=== PATIENT | male | born 1955 | race Caucasian/White ===

== ENCOUNTER 2017-07-26 05:22 | Outpatient (CLI) | payer BC, OTHER ==
--- NOTE | ~2017-07-26 | P ---
[facility] [place] [address] PROCEDURE REPORT Name: LANDRY CURIEL Room #: DEP Lidia Stone#: [id number] Admission: 07/26/17 Attend Phys: Marko Mejia MD Discharge: 07/26/17 Date of : 59 Report #: [id number] THIS REPORT FOR: //name// CC: Paulino Aparicioshannen Nathanon DATE OF SERVICE: 07/26/2017 PREOPERATIVE DIAGNOSIS: Supraventricular tachycardia. POSTOPERATIVE DIAGNOSIS: Typical atrioventricular zina reentrant tachycardia. PROCEDURES PERFORMED: 1. EP study with SVT ablation. 2. 3-D mapping. 3. Testing after drug infusion. HISTORY: The patient is a 62-year-old male with a history of mechanical aortic valve replacement. The patient reports that since his aortic valve replacement several years ago, the patient has had recurrent supraventricular tachycardia. He has failed antiarrhythmic drugs. In the clinic, he could induce his SVT by taking a deep breath and he could easily terminate it with a carotid massage. He is here for EP study and ablation. ANESTHESIA: The patient underwent MAC anesthesia, with no anesthesia-related complications. DESCRIPTION OF PROCEDURE: The patient underwent informed consent. We discussed the details of the procedure, including the risks, which include but not limited to bleeding, infection, vascular damage, stroke, SD as well as damage to the robinson conduction system, requiring a permanent pacemaker. The patient was brought to the EP laboratory in a fasting and sedated state. In fact, prior to the procedure, he was going in and out of what appears to be AV zina reentrant tachycardia. Next, I injected lidocaine to both groin areas and obtained access to the bilateral femoral veins and placed sheaths using the modified Seldinger technique. I placed an 8-Cypriot and 6-Cypriot short sheath in the right femoral vein and a 7-Cypriot and 6-Cypriot short sheath in the left femoral vein. Under fluoroscopy, I placed 3 quadripolar catheters at the HRA, His, and RV positions and a decapolar catheter easily in the coronary sinus. Next, an EP study was performed. At baseline, the patient was in supraventricular tachycardia with a tachycardia cycle length of 420 [facility] [address] [place] [address] PROCEDURE REPORT Name: MOISÉSLANDRY Room #: DEP [facility]#: [id number] Admission: 07/26/17 Attend Phys: Marko Mejia MD Discharge: 07/26/17 Date of : 59 Report #: [id number] milliseconds, a septal VA time of 30 milliseconds and entrainment demonstrated a VA-HV response consistent with typical AV zina reentrant tachycardia patient. Next, I attempted to obtain AV block and AV zina ERP, but any atrial pacing would result in a long AH interval, followed by induction of SVT. Therefore, AV block could not be determined. The VA block though was noted to be less than 290 milliseconds. When the patient was in SVT, his HV interval was noted to be 60 milliseconds. 3D MAPPING AND ABLATION: Next, I exchanged my HRA catheter and sheath for a SR0 and 4 mm Biosense Ivey ablation catheter. Next, I created a detailed 3D geometry of the right atrium with specific emphasis of the His bundle in slow pathway region as well as the coronary sinus ostium. In order to find a slow pathway potential, we would have to burst pace the ventricle to terminate the SVT, which was essentially incessant. I performed 3 ablation lesions and there were nice junctionals noted on the second lesion. There was never any compromised conduction. Next, I performed a basic EP study and I demonstrated that AV block was 490 milliseconds. I continued to pace and after a few minutes, I reinduced SVT with a tachycardia cycle length of 520 milliseconds. This was induced with atrial extrastimuli at 420 milliseconds at a 550-millisecond basic drive cycle length. At this point, we could tell that we have already done something to the slow pathway as it was now more difficult to induce. Therefore, I performed 2 additional ablation lesions at the level of the slow pathway at 50 patel 55 degrees and 60 seconds. Again, there was nice slow junctionals on these 2 ablation lesions. Next, an EP study was again performed. AV block was noted at 510 milliseconds and AV zina ERP was noted at 430 milliseconds at a 500-millisecond basic drive cycle length. Next, isoproterenol infusion was initiated at 1 mcg per minute and AV block was noted at 480 milliseconds. There were single AV zina echoes with atrial extrastimuli. AV zina ERP was noted at 400 milliseconds at a 550-millisecond basic drive cycle length. There was no inducible SVT. VA block was noted at 310 milliseconds and VA ERP was noted at 220 milliseconds at a 500-millisecond basic drive cycle length. Next, the isoproterenol infusion was increased to 2 mcg per minute and AV block was noted at 470 milliseconds. AV zina ERP was noted at 390 milliseconds with a 550-millisecond basic drive cycle length. Again, there were rare single AV zina echoes, but no double echoes and no SVT. Isoproterenol infusion was discontinued and post-ablation, the patient was in sinus rhythm with a sinus cycle length of 695 milliseconds, NV interval 210 milliseconds, QRS duration 100 milliseconds, QT interval 355 milliseconds, AH interval 115 milliseconds and HV [facility] [address] [place] [address] PROCEDURE REPORT Name: LANDRY CURIEL Room #: DEP [facility]#: [id number] Admission: 07/26/17 Attend Phys: Marko Mejia MD Discharge: 07/26/17 Date of : 59 Report #: [id number] interval 60 milliseconds. As such, the patient was rendered non-inducible and the procedure was concluded. Catheters and sheaths were pulled. Hemostasis was obtained and the patient awoke neurologically and hemodynamically intact, with no complications and no significant bleeding. CONCLUSIONS: 1. Successful ablation of typical atrioventricular zina reentrant tachycardia. 2. Normal SA zina function. 3. Normal AV zina function. 4. Normal His-Purkinje function. 5. No other inducible arrhythmias on or off isoproterenol. RECOMMENDATIONS: The patient will be monitored in recovery and can go home today. He will go home with Lovenox shots until his INR is therapeutic given his mechanical aortic valve. He will see me back in 3 months. <ELECTRONICALLY SIGNED> By: Marko Mejia MD 08/04/17 1410 1158 1400 Marko Mejia MD /nt
[2017-07-26] MEDS ORDERED: FARXIGA10 MG PO (07:17)
[2017-07-26] MEDS ORDERED: VASCEPA1 GM PO (07:17)
[2017-07-26] MEDS ORDERED: COUMADIN 5 MG TA5 M1 PO (07:17)
[2017-07-26] MEDS ORDERED: CARVEDILOL12.5 MG PO (07:17)
[2017-07-26] MEDS ORDERED: PIOGLITAZONE-M1 EAC1 PO (07:18)
[2017-07-26] MEDS ORDERED: ZETIA10 MG PO (07:18)
[2017-07-26] MEDS ORDERED: CRESTOR20 MG PO (07:18)
[2017-07-26] MEDS ORDERED: TRIGLIDE160 M1 PO (07:20)
[2017-07-26] MEDS ORDERED: ASPIR 8181 MG PO (07:20)
[2017-07-26] MEDS ORDERED: PRILOSEC 20 MG20 MG PO (07:21)
[2017-07-26 07:40] LABS: BASOPHILS 0.4 % (0.0-2.0); EOSINOPHILS 1.5 % (0.0-3.0); HEMATOCRIT 42.6 % (42.0-52.0); HEMOGLOBIN 14.4 gm/dL (14.0-18.0); LYMPHOCYTES 16.6 % (24.0-44.0); MCH 27.9 pg (26.0-34.0); MCHC 33.9 g/dL (28.0-37.0); MCV 82.3 fL (80.0-100.0); MONOCYTES 11.5 % (1.0-8.0); PLATELET COUNT 140 thou/uL (150-400); RBC 5.17 mil/uL (4.50-6.00); RDW 15.3 % (10.5-14.5); WBC 7.1 thou/uL (4.0-11.0)
[2017-07-26 07:46] LABS: POTASSIUM 3.8 mmol/L (3.5-5.1)
[2017-07-26 07:56] LABS: MANUAL DIFF NO
[2017-07-26 07:59] LABS: APTT 30.3 Seconds (24.5-32.8); INR 1.3; PROTIME 13.7 Seconds (9.3-11.4)
[2017-07-26] MEDS ORDERED: ENOXAPARIN120 MG/0.1 SUBQ (13:14)
== END 2017-07-26 11:45 | disposition home or self-care (01) ==
LOC: TBA 05:22 → CATH 05:22 → EDSTATUS 07-27 06:28 → OR 07-27 10:28 → CATH 07-27 15:06
PROVIDERS: Internal Medicine Cardiovascular Disease
DX: I47.1 Supraventricular tachycardia (principal)
CPT/HCPCS: 62110; 62900; 70005

== ENCOUNTER → 2020-10-05 | Outpatient (CLI) | payer BC, OTHER ==
[~2020-10-05] MED LIST: ASPIR 8181 MG PO; CARVEDILOL12.5 MG PO; COUMADIN 5 MG TA5 M1 PO; CRESTOR20 MG PO; ENOXAPARIN120 MG/0.1 SUBQ; FARXIGA10 MG PO; PIOGLITAZONE-M1 EAC1 PO; PRILOSEC 20 MG20 MG PO; TRIGLIDE160 M1 PO; VASCEPA1 GM PO; ZETIA10 MG PO
== END ==
LOC: SJCVCIMAG 09:48
PROVIDERS: ATTEND Internal Medicine Cardiovascular Disease
DX: I07.1 Rheumatic tricuspid insufficiency (principal); I44.0 Atrioventricular block, first degree; I49.3 Ventricular premature depolarization; E78.5 Hyperlipidemia, unspecified; I10 Essential (primary) hypertension; E11.9 Type 2 diabetes mellitus without complications; Z95.2 Presence of prosthetic heart valve; Z98.890 Other specified postprocedural states; Z79.899 Other long term (current) drug therapy

== ENCOUNTER → 2020-11-26 | Outpatient (CLI) | payer BC, OTHER ==
[~2020-11-26] MED LIST changes: +ALOGLIPTIN25 MG PO; +EDARBI40 MG PO; +EZETIMIBE10 MG PO; +FENOFIBRATE160 MG PO; +JARDIANCE10 MG PO; +METFORMIN HCL1000 MG PO; +MULTIVITAMINS1 EAC6 PO; +PIOGLITAZONE15 MG; +PROTONIX40 M2 PO; +TRULICITY0.75 MG/0. SUBQ; +VITAMIN D3100 MCG PO; +WARFARIN SODIUM10 MG PO; +WARFARIN SODIUM5 MG PO; +ZINC50 M2 PO
== END ==
LOC: LAB 08:33
PROVIDERS: ATTEND Orthopaedic Surgery Sports Medicine
DX: Z01.812 Encounter for preprocedural laboratory examination (principal); Z20.828 Contact with and (suspected) exposure to other viral communicable diseases

== ENCOUNTER 2020-12-02 06:02 | Inpatient (IN) | payer BC, OTHER ==
[2020-11-26 09:05] LABS: URINE BILIRUBIN NEGATIVE (Negative); URINE BLOOD NEGATIVE (Negative); URINE CLARITY CLEAR; URINE COLOR YELLOW; URINE GLUCOSE-RANDOM* 3+ (Negative); URINE KETONES NEGATIVE (Negative); URINE LEUKOCYTES-REFLEX NEGATIVE (Negative); URINE NITRITE-REFLEX NEGATIVE (Negative); URINE PROTEIN (DIPSTICK) NEGATIVE (Negative); URINE UROBILINOGEN 0.2 E.U./dl (0.2-1.0)
[2020-11-26 09:23] LABS: INR 2.3; PROTIME 24.1 Seconds (9.3-11.4)
[2020-11-26 09:24] LABS: HEMATOCRIT 45.1 % (42.0-52.0); HEMOGLOBIN 14.5 gm/dL (14.0-18.0); MCH 27.5 pg (26.0-34.0); MCHC 32.3 g/dL (28.0-37.0); MCV 85.2 fL (80.0-100.0); RBC 5.29 mil/uL (4.50-6.00); RDW 14.9 % (10.5-14.5)
[2020-11-26 09:37] LABS: ALBUMIN 4.6 g/dL (3.4-5.0); CALCIUM 10.6 mg/dL (8.5-10.1); CREATININE 1.2 mg/dL (0.7-1.3); POTASSIUM 4.4 mmol/L (3.5-5.1)
[2020-11-27 01:06] LABS: GLYCOHEMOGLOBIN (HGB A1C) 6.6 % (4.8-5.6)
[~2020-12-02] VITALS: Ht 177.8 cm; Wt 108.4 kg
[2020-12-02 06:56] VITALS: BP 144/69
[2020-12-02 07:24] LABS: PROTIME 11.3 Seconds (9.3-11.4)
[2020-12-02 07:55] LABS: INR 1.1
[2020-12-02 13:10] VITALS: BP 130/63
[2020-12-02 16:52] VITALS: BP 128/63
[2020-12-02 20:01] VITALS: BP 107/56
--- NOTE | 2020-12-02 21:22 | NUR ---
PATIENT ADMITTED FROM OR WITH RIGHT TOTAL KNEE, FILEMON DRESSING, KNEE HIGH DALE HOSE IN PLACE, SCD'S, AND [facility] CARE. PATIENT C/O PAIN WITH RIGHT KNEE, OXYCODONE 1 TABLET GIVEN. RIGHT FOREARM IV IN PLACE, IV FLUIDS STARTED AT 100CC/HR. AT BEDSIDE. PHYSICAL THERAPY WORKED WITH THE PATIENT THIS AFTERNOON. PATIENT WILL DISCHARGE TOMORROW IF OK BY PT. WILL CONTINUE TO MONITOR.
--- NOTE | 2020-12-03 04:11 | NUR ---
PT IS A/O X4 AND IS UP WITH SBA TO THE BR. USES A URINAL AT THE BEDSIDE. C/O PAIN. PRN PAIN MEDICATION PROVIDED DIRECTED. FALL PRECAUTIONS IMPLEMENTED, CALL LIGHT IS WITHIN REACH. WILL CONTINUE TO MONITOR.
[2020-12-03 05:52] LABS: ABSOLUTE NEUTROPHILS 5.1 thou/uL (1.4-8.2); BASOPHILS 0.2 % (0.0-2.0); EOSINOPHILS 0.1 % (0.0-3.0); HEMATOCRIT 38.3 % (42.0-52.0); HEMOGLOBIN 12.5 gm/dL (14.0-18.0); LYMPHOCYTES 23.2 % (24.0-44.0); MCH 27.9 pg (26.0-34.0); MCHC 32.5 g/dL (28.0-37.0); MCV 85.9 fL (80.0-100.0); MONOCYTES 11.7 % (1.0-8.0); PLATELET COUNT 157 thou/uL (150-400); POLYS 64.8 % (36.0-66.0); RBC 4.46 mil/uL (4.50-6.00); RDW 14.7 % (10.5-14.5); WBC 7.9 thou/uL (4.0-11.0)
[2020-12-03 05:59] LABS: INR 1.1; PROTIME 11.2 Seconds (9.3-11.4)
[2020-12-03 06:08] LABS: CREATININE 1.1 mg/dL (0.7-1.3); MAGNESIUM 2.3 mg/dL (1.8-2.4); POTASSIUM 4.2 mmol/L (3.5-5.1)
[2020-12-03 08:53] VITALS: BP 122/48
--- NOTE | 2020-12-03 10:06 | NUR ---
ASSUMED CARE AT 0700. PT IS A&O X4. PT DRESSING ON RIGHT KNEE IS INTACT, DRY,AND CLEAN. PT HAS FILEMON, THIGH HIGH DALE HOSE, AND POLAR CARE ALONG WITH SCD HOSE IN PLACE. IV IS INTACT AND SHOWS NO SIGNS OF REDNESS OR SWELLING. PT COMPLAINS OF SLIGHT PAIN 3/10 BUT DOES NOT WANT ANYTHING OTHER THAN THE SCHEDULE MORPHINE AT THIS TIME. WT BEARING TOLERATED. PT DENIES SOA,V,D. FALL PRECAUTION. CALL LIGHT WITHIN REACH. WILL CONTINUE TO MONITOR. BP WAS SLIGHTLY LOW ON DIALOTIC SO PT DECIDED TO HOLD ON THE BLOOD PRESSURE MEDICATION. PT DENIES NUMBNESS OR TINGLING. PT STILL COMPLAINS OF SLIGHT RIGHT FOOT DROP. BSG WNL
--- NOTE | 2020-12-03 10:23 | NUR ---
ASSESSMENT: CM REVIEWED CHART AND SPOKE WITH PT. PT IS ALERT AND ORIENTED X4. PT IS S/P R TKR. PT REPORTS LIVING IN A HOUSE WITH HIS . PT REPORTS ABOUT 2 STEPS TO ENTER AND ABOUT 12-14 STEPS WITH HANDRAILS TO HIS BEDROOM. PT REPORTS HAVING A WALKER AT HOME. CM DISCUSSED ROLE. PT HAS OUTPATIENT THERAPY ARRANGED AT [facility] STARTING ON MONDAY. PT REPORTS HE WILL HAVE NO NEEDS FROM . PT WILL LIKELY DISCHARGE LATER TODAY.
[2020-12-03] MEDS ORDERED: LOVENOX80 MG/0.8 SUBQ (10:40)
[2020-12-03 11:30] VITALS: BP 122/48
--- NOTE | 2020-12-05 12:11 | O ---
[address] [address] OPERATIVE REPORT Name: LANDRY CURIEL Room #: 442-P [facility] IN M.R.#: [id number] Admission: 12/02/20 Attend Phys: Tono Horton MD Discharge: 12/03/20 Date of : 59 Report #: [id number] THIS REPORT FOR: cc: Favian Rodas MD, Neal A. MD McCabe,Tono Jimenez MD ~ DATE OF SERVICE: 12/02/2020 SERVICE: Orthopedics. FACILITY: [facility]. SURGEON: Tono Horton MD SENIOR ASSISTANT MANAGER: Tiera Robert NP. INDICATION FOR SENIOR ASSISTANT MANAGER: Exposure and closure, assistance with retraction and implant placement. PREOPERATIVE DIAGNOSES: 1. Right knee pain. 2. Severe right knee osteoarthritis, varus type. POSTOPERATIVE DIAGNOSES: 1. Right knee pain. 2. Severe right knee osteoarthritis, varus type. PROCEDURES: 1. Right total knee arthroplasty. 2. Computer navigated robotic-assisted arthroplasty. COMPLICATIONS: None. DRAINS: None. SPECIMENS: None. ANESTHESIA: General with regional. ESTIMATED BLOOD LOSS: 25 mL. FINDINGS: Synthes Oxinium size 5 Journey femoral component with size 6 tibial component, 10 mm constrained poly insert and 35 mm patellar button. HISTORY: The patient is a 65-year-old gentleman with history of advanced right [address] [address] OPERATIVE REPORT Name: LANDRY CURIEL Room #: 442-P [facility]#: [id number] Admission: 12/02/20 Attend Phys: Tono Horton MD Discharge: 12/03/20 Date of : 59 Report #: [id number] knee osteoarthritis with [id number] changes as well as sclerosis, osteophytes and subchondral cyst. He had failed extensive conservative measures including rest, activity modifications, physical therapy, oral medicines, bracing, injections and modalities. He had x-rays, which were consistent with severe osteoarthritis and was indicated for surgical treatment after failing conservative measures. Risks, benefits, alternatives, and indication of surgery discussed with him in detail. Risks include but not limited to pain, bleeding, infection, injury to nerves or blood vessels, persistent pain despite surgical intervention, failure of any repairs, progression of preexisting chondral injury, stiffness, need for further surgery as well as complications related to anesthesia such as stroke, heart attack, pulmonary complications, thromboembolic disease and . He saw his hand laminator in preparation for surgery and was medically optimized. PROCEDURE IN DETAIL: After right lower extremity was correctly identified in the preoperative holding area as the operative extremity, the patient underwent regional nerve block. He was then taken to the operating room where general anesthesia was induced without complication. He was padded appropriately. Prophylactic antibiotics were administered at appropriate time. Tourniquet was applied to right lower extremity. TXA was administered before the tourniquet went up and before incision as well as a second dose after the tourniquet came down. Right leg was prepped and draped in standard sterile fashion. Timeout procedure performed. Esmarch was used. Tourniquet inflated to 300 mmHg. Standard anterior approach was made with medial parapatellar arthrotomy. The knee was exposed. The retropatellar tendon fat pad was excised as were the anterior horns of the menisci and the cruciate ligaments. He had severe osteoarthritis, tricompartmental. Osteophytes were removed. The [employer] Navio check points and femoral and tibial half pins were then placed and then the Navio system was used to map out the patient's alignment sizing and balancing. He had some osteophytes medially and it appeared that he was tight medially as well, so we made plans for a medial release at the appropriate time, which was consistent with his varus alignment with approximately 5-6 degree flexion contracture. We sized him to a 5 femur and then proceeded with using the Navio bur to make the distal femoral cut based on the templating. The tibia cut was then made as well and we used the sizing block to assess the medial and lateral flexion and extension gaps. He was tight medially in both flexion and extension. I used a lamina office admin and an 11 blade to perform a pie-crusting technique to release the medial side. The knee was well balanced with the 10 mm sizing block at this point. The posterior capsular component of the periarticular injection cocktail was then injected in the posterior capsule and then we proceeded with final preparation of the femoral component and the tibial component as well. The trials were placed with a 10 mm insert. I prepared the patella as well and then was assessed the balancing with the trials in place. At this point, he is having some gapping medially. It appeared that during the [facility] [address] [place] [address] OPERATIVE REPORT Name: LANDRY CURIEL Room #: 442-P [facility] IN M.R.#: [id number] Admission: 12/02/20 Attend Phys: Tono Horton MD Discharge: 12/03/20 Date of : 59 Report #: [id number] exposure, there have been some bulging of the medial soft tissues, so we made plans for constrained liner to provide that initial coronal plane stability. The Navio system was used in making these assessments and then we made final preparations and then removed the implants, thoroughly lavaged the knee and then made small drill holes in the medial tibial plateau due to the sclerotic bone that was present. After irrigating and injecting the periosteum with the periarticular injection cocktail, the final implants were cemented into place on the femur and the tibia and we placed the knee into extension with the 11 mm constrained liner to provide some increased compression. The patella was cemented into place as well. While the cement was allowed to cure, the remaining portion of the injection cocktail was injected into the knee and then the excess cement was removed as well. The tourniquet was let down. Hemostasis was achieved. We checked the Navio system once more for some additional feedback on the balancing and I favored the 10 mm insert based on the preoperative templating and the postoperative templating and balancing on manual feel. The constrained liner was selected in order to provide the additional medial support while soft tissues healed. The final poly was then snapped into position after the knee was once again thoroughly lavaged and we assessed for any residual cement pieces that were present. Note that the posterior osteophytes were resected prior to placement of the final implant. The arthrotomy was then closed over a gram of vancomycin powder with 0 Vicryl suture in [id number] fashion. We performed a gravity flexion test confirmed that a watertight closure had been achieved. Skin was closed with 2-0 Vicryl followed by running subcuticular 3-0 Monocryl and Dermabond and then Acticoat and a FILEMON dressing was applied to the right leg followed by compression stocking and a cold therapy device. The patient was awakened from anesthesia and taken to recovery room in stable condition. No complications. All counts were correct. <ELECTRONICALLY SIGNED> By: Tono Horton MD 12/05/20 1211 1039 [id number] Tono Horton MD /nt
== END 2020-12-03 14:49 | disposition home or self-care (01) | DRG 470 ==
LOC: OR 06:02 → TBA 06:07 → OR 07:50 → 4S 12:10 → OR 12:11 → 4S 12:11 → OR 12:39 → 4S 12-03 14:49
PROVIDERS: Nurse Practitioner; ADMIT Orthopaedic Surgery Sports Medicine; ATTEND Orthopaedic Surgery Sports Medicine
PROC: 0SRC069 Replacement of Right Knee Joint with Oxidized Zirconium on Polyethylene Synthetic Substitute, Cemented, Open Approach (ICD-10-PCS; principal; 2020-12-02)
PROC: 8E0Y0CZ Robotic Assisted Procedure of Lower Extremity, Open Approach (ICD-10-PCS; principal; 2020-12-02)
DX: M17.11 Unilateral primary osteoarthritis, right knee (principal); I25.10 Atherosclerotic heart disease of native coronary artery without angina pectoris; E78.5 Hyperlipidemia, unspecified; I35.0 Nonrheumatic aortic (valve) stenosis; E66.9 Obesity, unspecified; I10 Essential (primary) hypertension; E11.9 Type 2 diabetes mellitus without complications; I48.91 Unspecified atrial fibrillation; Z90.49 Acquired absence of other specified parts of digestive tract; Z98.49 Cataract extraction status, unspecified eye; Z95.2 Presence of prosthetic heart valve; Z68.34 Body mass index [BMI] 34.0-34.9, adult
CPT/HCPCS: 10195; 50010; 50101; 50415; 50954; 51130; 51225; 51320; 52001; 52282; 53000; 53078; 53365; 54118; 56527; 56528; 57095; 57103; 57110; 57127; 57180; 62110; 62900; 70005

== ENCOUNTER → 2021-01-01 | Outpatient (CLI) | payer BC, OTHER ==
[~2021-01-01] MED LIST changes: +LOVENOX80 MG/0.8 SUBQ
== END ==
LOC: ULTRA 15:59
PROVIDERS: ATTEND Orthopaedic Surgery Sports Medicine
DX: M79.661 Pain in right lower leg (principal)